=== PATIENT | female | born 1945 | race Caucasian/White ===

== ENCOUNTER → 2019-03-05 12:41 | Outpatient (CLI) | payer MEDICARE, SELFPAY ==
--- NOTE | 2019-03-05 12:45 | US_ITS ---
STUDY: THYROID ULTRASOUND REASON FOR EXAM: Female, 73 years old. Thyroid Nodule Follow-up TECHNIQUE: Ultrasound evaluation of the thyroid was performed with real-time and static nelson-scale imaging. COMPARISON: 07/26/2016, 06/26/2016 FINDINGS: RIGHT LOBE: The right lobe of the thyroid gland measures 5.1 x 1.6 x 1.8 cm. There is a homogeneous echotexture. Slightly hyperechoic nodule in the right thyroid lobe measures 8 mm with well-defined smooth margins. 3 mm anechoic cyst of the inferior right thyroid lobe is also identified. LEFT LOBE: The left lobe of the thyroid gland measures 5.1 x 1.3 x 1.4 cm. There is a homogeneous echotexture. Solitary anechoic cyst of the left thyroid lobe measures 3 mm, considered benign. ISTHMUS: The isthmus measures 3.5 cm. Complex solid and cystic nodule of the inferior isthmus measures 1.8 x 1.8 x 1.0 cm and represents nodule previously biopsied. The regional lymph nodes are normal. US/Thyroid IMPRESSION: Stable thyroid nodules. No new or enlarging pulmonary nodule. Isthmus nodule previously biopsied on 07/26/2016. Electronically Signed: Jenaro Galan MD ([place]) at 12:30 EST , Service support ,
--- NOTE | 2019-03-05 12:45 | BI_ITS ---
MAMMOGRAPHY - BILATERAL SCREENING REASON FOR EXAM: Female, 73 years old. Routine annual screening examination. PERTINENT HISTORY: Mother with breast cancer. Grandmother with breast cancer. Remote left excisional breast biopsy. TECHNIQUE: Digital bilateral breast henrry (3D mammographic acquisition) in the CC and MLO projections. 2-D mediolateral oblique (MLO) and craniocaudad (CC) views of both breasts were obtained. CAD: Full Field Digital Mammography with Computer Added Detection was performed. COMPARISON: Comparison is made with prior outside examination dated January 12, 2018. FINDINGS: Breast Composition: The breasts are heterogeneously dense, which may obscure small masses. There are no dominant masses or suspicious calcifications. No other significant abnormalities are identified. There has been no significant change since the prior study. BI/SCREEN MAMM (CAD) W/HENRRY BILAT IMPRESSION: Stable bilateral screening mammogram. Yearly follow-up mammogram recommended. (A) ASSESSMENT CATEGORY: BIRADS Category 1: Negative. A letter regarding these results will be sent to the patient by the facility within 30 days. Approximately 10% of breast cancers are not detected by mammography. A normal mammogram should not delay biopsy of a clinically suspicious abnormality. [id number] Electronically Signed: Murphy Ma, at 14:33 EST , Service support ,
== END ==
PROVIDERS: Family Provider Nurse Practitioner Family; PCP Nurse Practitioner Family; Referring Provider Nurse Practitioner Family; Visit Provider Nurse Practitioner Family
DX: Z12.31 Encounter for screening mammogram for malignant neoplasm of breast (principal); E04.1 Nontoxic single thyroid nodule; Z80.3 Family history of malignant neoplasm of breast; M81.0 Age-related osteoporosis without current pathological fracture; I10 Essential (primary) hypertension
CPT/HCPCS: 76536; 77063; 77067